=== PATIENT | female | born 1965 | race Caucasian/White ===

== ENCOUNTER → 2020-05-28 | Outpatient (CLI) | payer OTHER | END | disposition home or self-care (01) | LOC: CFH 12:45 | PROVIDERS: ATTEND Registered Nurse | DX: N63.0 Unspecified lump in unspecified breast (principal) | CPT/HCPCS: 76642; 77065; G0279 ==

== ENCOUNTER 2021-06-01 10:32 | Outpatient (CLI) | payer OTHER | END 2021-06-01 23:59 | disposition home or self-care (01) | LOC: CFH 10:32 | PROVIDERS: ATTEND Registered Nurse | DX: Z12.31 Encounter for screening mammogram for malignant neoplasm of breast (principal) | CPT/HCPCS: 77063; 77067 ==